=== PATIENT | female | born 1975 | race American Indian/Alaskan Native ===

== ENCOUNTER 2017-03-25 16:49 | Emergency (ER) | payer OTHER, BC ==
[2017-03-25 17:02] VITALS: BP 140/91
[2017-03-25] MEDS ORDERED: Ketorolac 60 MG/2 ML SDV IM ONE (18:33)
--- NOTE | 2017-03-25 18:39 | EDM.PDOC ---
ED HPI GENERAL MEDICAL PROBLEM - General Chief Complaint: Upper Extremity Injury/Pain Stated Complaint: INJURY RT HAND Time Seen by Provider: 03/25/17 16:57 Source of Information: Reports: Patient History Limitations: Reports: No Limitations - History of Present Illness INITIAL COMMENTS - FREE TEXT/NARRATIVE: Presents reporting that on Friday, March 23, 2017 she was working at her job a [employer] store when her hand was caught between 2 swinging doors injuring her right thumb. She has had some pain and swelling since. The swelling has resolved but she continues to have pain with movement and mild bruising in the are right hand Pain Score (Numeric/FACES): 9 - Related Data Allergies Allergy/AdvReac Type Severity Reaction Status Date / Time aspirin Allergy Stomach Verified 03/25/17 16:53 Upset chocolate flavor Allergy Hives Verified 03/25/17 16:53 Home Meds: Home Meds DULoxetine HCl [Cymbalta] 1 tab PO DAILY 05/23/14 [History] Omeprazole 1 tab PO DAILY 05/23/14 [History] Cranberry Vitamin 250 mg PO DAILY 05/22/15 [History] Hydrocodone/Acetaminophen [Hydrocodon-Acetaminoph 7.5-325] 1 tab PO ASDIRECTED PRN 05/22/15 [History] Furosemide 40 mg PO DAILY 08/28/16 [History] Potassium Bicarbonate/Cit Ac [Potassium 25 Meq Tablet Eff] 03/25/17 [History] Past Medical History - Past Health History Medical/Surgical History: Denies Medical/Surgical History Gastrointestinal History: Reports: GERD Genitourinary History: Reports: Renal Calculus, UTI, Recurrent [employer] History: Reports: Musculoskeletal History: Reports: Back Pain, Chronic, Other (See Below) Other Musculoskeletal History: degenerative disc disease, lumbar radiculopathy, chronic pain syndrome Psychiatric History: Reports: Anxiety, Depression - Past Surgical History Head Surgeries/Procedures: Reports: None HEENT Surgical History: Reports: Oral Surgery GI Surgical History: Reports: Cholecystectomy Social & Family History - Family History Family Medical History: Noncontributory - Tobacco Use Smoking Status *Q: Never Smoker Years of Tobacco use: 3 Used Tobacco, but Quit: Yes Month Tobacco Last Used: quit smoking in April 1916 - Alcohol Use Days Per Week of Alcohol Use: 0 - Recreational Drug Use Recreational Drug Use: No Review of Systems - Review of Systems Review Of Systems: ROS reveals no pertinent complaints other than HPI. ED EXAM, GENERAL - Physical Exam Exam: See Below Exam Limited By: No Limitations General Appearance: Alert, No Apparent Distress Ears: Normal External Exam Nose: Normal Inspection Throat/Mouth: Normal Inspection Head: Atraumatic, Normocephalic Neck: Normal Inspection Respiratory/Chest: No Respiratory Distress, Lungs Clear, Normal Breath Sounds Cardiovascular: Normal Peripheral Pulses, Regular Rate, Rhythm Peripheral Pulses: 3+: Radial (L), Radial (R) GI/Abdominal: Soft Extremities: Normal Inspection, Other (Right thenar eminence mildly ecchymotic without lesion, ecchymosis deformity or crepitus. Tender to palpation. All digits warm and pink with good capillary refill. Strong radial pulse. ROM thumb , wrist and digits without limitation except mild hesitation due to pain in thumb) Course - Vital Signs Last Recorded V/S: Last Vital Signs Temp 36.6 C 03/25/17 16:57 Pulse 107 H 03/25/17 16:57 Resp 18 03/25/17 16:57 BP 140/91 H 03/25/17 16:57 Pulse Ox 97 03/25/17 16:57 - Orders/Labs/Meds Orders: Active Orders 24 hr Category Date Time Status Fingers Thumb Rt F5 [CR] Stat Exams 03/25/17 17:22 Ordered Ketorolac [Toradol] Med 03/25/17 18:33 Once 60 mg IM ONETIME ONE Departure - Departure Time of Disposition: 18:38 Disposition: Home, Self-Care 01 Condition: Good Clinical Impression: Thumb injury Qualifiers: Encounter type: initial encounter Laterality: right Qualified Code(s): S69.91XA - Unspecified injury of right wrist, hand and finger(s), initial encounter - Discharge Information Referrals: PCP,None [Primary Care Provider] - [facility] [Outside] [facility] [Outside] Forms: ED Department Discharge Additional Instructions: 1. Cool packs 20 minutes every 3-4 hours. 2. Wear splint. Aleve 2 in the am and 2 in the pm or Ibuprofen 200mg tabs 1-2 every 8 hours as needed for pain. 3. Follow up with occupational health or your primary provider for work release. - My Orders Last 24 Hours: My Active Orders 03/25/17 17:22 Fingers Thumb Rt F5 [CR] Stat 03/25/17 18:33 Ketorolac [Toradol] 60 mg IM ONETIME ONE - Assessment/Plan Last 24 Hours: My Active Orders 03/25/17 17:22 Fingers Thumb Rt F5 [CR] Stat 03/25/17 18:33 Ketorolac [Toradol] 60 mg IM ONETIME ONE
--- NOTE | 2017-03-26 10:43 | CR ---
EXAM DATE: 03/25/17 PATIENT'S AGE: 41 Patient: CYNDEE MONTENEGRO Facility: [place], [place] Site . Site : [id number] Study: XRay Extremity thumb [id number]/11/2017 6:03:48 PM Ordering Physician: Doctor Correia Final Report: INDICATION: crushing injury to rt thumb TECHNIQUE: 1st Finger radiograph 3 views right COMPARISON: None FINDINGS: Bones: Alignment is normal. No acute fractures or aggressive bone lesions identified. Joint spaces: Unremarkable. Soft tissues: Unremarkable. No radiopaque foreign bodies are seen. IMPRESSION: 1. No acute osseous injuries are noted. Dictated by: Alex Blanton MD @ 03/25/2017 18:06:10 (Electronic Signature) Report Signed by Proxy. ELLEN
== END 2017-03-25 19:00 | disposition home or self-care (01) ==
LOC: MW.ED 16:49
DX: S69.91XA Unspecified injury of right wrist, hand and finger(s), initial encounter (principal); K21.9 Gastro-esophageal reflux disease without esophagitis; Z88.6 Allergy status to analgesic agent; Z79.899 Other long term (current) drug therapy; Z87.442 Personal history of urinary calculi; Z87.440 Personal history of urinary (tract) infections; Z90.49 Acquired absence of other specified parts of digestive tract; W23.1XXA Caught, crushed, jammed, or pinched between stationary objects, initial encounter
CPT/HCPCS: 73140; 96372; 99283; J1885; 99282